=== PATIENT | female | born 1960 | race African-American/Black ===

== ENCOUNTER 2020-12-14 23:24 | Emergency (ER) | payer MEDICAID ==
[~2020-12-14] VITALS: Ht 162.6 cm; Wt 80.0 kg
[2020-12-15] MEDS ORDERED: ACETAMINOPHEN 500MG TABLET PO ONE
[2020-12-15 01:20] LABS: BASOPHILS % 0.5 % (0.0-2.0); EOSINOPHILS % 0.5 % (0.0-5.0); HEMATOCRIT. 42.3 % (36.0-48.0); HEMOGLOBIN. 14.4 g/dL (12.0-16.0); MEAN CORPUSCULAR HEMOGLOBIN 30.2 pg (28.0-32.0); MEAN CORPUSCULAR VOLUME 88.4 fL (81.0-99.0); MONOCYTES % 13.3 % (2.0-8.0); NEUTROPHILS % 59.7 % (40.0-76.0); PLATELET 249 x1000/uL (130-400); RED BLOOD CELL COUNT 4.79 mill/uL (4.2-5.4); RED CELL DISTRIBUTION WIDTH 14.1 % (11.6-14.6)
[2020-12-15 01:28] LABS: CHLORIDE 107 mEq/L (98-107)
[2020-12-15 01:43] LABS: CLARITY URINE CLEAR (CLEAR); COLOR URINE YELLOW (YELLOW); KETONES URINE NEGATIVE (NEGATIVE); LEUKOCYTE ESTERASE URINE NEGATIVE (NEGATIVE); NITRITE URINE NEGATIVE (NEGATIVE); OCCULT BLOOD URINE NEGATIVE (NEGATIVE); PROTEIN URINE NEGATIVE (NEGATIVE); SPECIFIC GRAVITY URINE 1.018 (1.005-1.030)
[2020-12-15] MEDS ORDERED: AMOX-494 MT (03:37)
[2020-12-15] MEDS ORDERED: AZIT250T12 MT (03:37)
[2020-12-15] MEDS ORDERED: GABAPENTIN 300MG CAPSULE PO ONE (03:45)
[2020-12-15 04:10] VITALS: BP 136/75
== END 2020-12-15 04:10 | disposition home or self-care (01) ==
LOC: ER 23:24
DX: J18.9 Pneumonia, unspecified organism (principal); Z20.822 Contact with and (suspected) exposure to COVID-19; R07.89 Other chest pain; R30.0 Dysuria; J45.909 Unspecified asthma, uncomplicated; Z59.0 Homelessness
CPT/HCPCS: 36415; 71045; 80053; 81003; 83690; 83880; 84484; 85025; 93005; 99285; C9803; U0003; U0005